=== PATIENT | female | born 1970 ===

== ENCOUNTER 2022-05-20 21:13 | Emergency (ER) | payer BC ==
[~2022-05-20] VITALS: Ht 170.2 cm; Wt 100.0 kg
--- NOTE | 2022-05-20 21:45 | NUR ---
Patient placed on 2L NC awaiting room in ER.
[2022-05-20 22:43] LABS: ALANINE AMINOTRANSFERASE 25 U/L (12-78); ALBUMIN 3.6 G/DL (3.4-5.0); ALBUMIN/GLOBULIN RATIO 0.9 (1.1-1.5); ALKALINE PHOSPHATASE 93 IU/L (46-116); ANION GAP 12 (8-16); ASPARTATE AMINO TRANSFERASE 28 U/L (10-37); BILIRUBIN,TOTAL 0.2 MG/DL (0.1-1.0); BLOOD UREA NITROGEN 13 MG/DL (7-18); BUN/CREATININE RATIO 10.2 (10.0-20.0); CALCIUM 8.7 MG/DL (8.5-10.1); CHLORIDE 103 MMOL/L (99-107); CREATININE 1.28 MG/DL (0.40-0.90); GLUCOSE 282 MG/DL (70-104); MAGNESIUM 1.9 MG/DL (1.5-2.4); POTASSIUM 3.6 MMOL/L (3.5-5.1); SODIUM 138 MMOL/L (135-145); TOTAL PROTEIN 7.5 G/DL (6.4-8.2); eGFR 44 ML/MIN
[2022-05-20 22:45] LABS: BASOPHILS # (AUTO) 0.1 X10'3 (0-0.2); BASOPHILS % (AUTO) 0.4 % (0-1); EOSINOPHILS # (AUTO) 0.1 X10'3 (0-0.9); EOSINOPHILS % (AUTO) 0.6 % (0-6); HEMOGLOBIN 16.1 g/dl (12.0-16.0); LYMPHOCYTES # (AUTO) 1.5 X10'3 (1.1-4.8); LYMPHOCYTES % (AUTO) 9.5 % (21-51); MEAN CORPUSCULAR HEMOGLOBIN 31.3 PG (27.0-31.0); MEAN CORPUSCULAR HGB CONC 33.6 g/dL (33.0-36.5); MEAN CORPUSCULAR VOLUME 92.9 FL (78-98); MEAN PLATELET VOLUME 8.5 FL (7.4-10.4); MONOCYTES # (AUTO) 0.7 X10'3 (0-0.9); MONOCYTES % (AUTO) 4.3 % (2-12); NEUTROPHILS # (AUTO) 13.1 X10'3 (1.8-7.7); NEUTROPHILS % (AUTO) 85.2 % (42-75); PLATELET COUNT 407 X10'3 (140-440); RED BLOOD COUNT 5.16 X10'6 (4.20-5.60); RED CELL DISTRIBUTION WIDTH 13.6 % (11.5-14.5); WHITE BLOOD COUNT 15.4 X10'3 (4.5-11.0)
[2022-05-20] MEDS ORDERED: diphenhydrAMINE 50 mg/ml inj IV ONE (22:50)
[2022-05-20] MEDS ORDERED: famotidine/PF 10 mg/ml inj IV ONE (22:50)
[2022-05-20] MEDS ORDERED: normal saline 1000ML IV soln IVB ONE (22:50)
[2022-05-20] MEDS ORDERED: methylPREDNISolone sod succ 125mg/2ml vial IV ONE (22:50)
--- NOTE | 2022-05-20 23:00 | NUR ---
ATTEMPT EKG, PT IN CT. WILL ATTEMPT AGAIN.
[2022-05-20] MEDS ORDERED: ondansetron/PF 4mg/2ml inj IV ONE (23:20)
[2022-05-21] MEDS ORDERED: LAMO300T2 PO (00:05)
[2022-05-21] MEDS ORDERED: epiNEPHrine 1 mg/ml inj IM STA (00:54)
[2022-05-21] MEDS ORDERED: ondansetron/PF 4mg/2ml inj IV ONE (00:55)
--- NOTE | 2022-05-21 01:13 | NUR ---
Success A new connect request was successfully created for: CORY RAMOS : 1970 ConnectID: [id number] REASON: Status Epilepticus ACUITY: Acuity Level 1 SUBMITTED:
[2022-05-21 02:12] LABS: URINE HCG NEGATIVE (NEG)
[2022-05-21 02:27] LABS: CLARITY,URINE CLEAR (Clear); COLOR,URINE YELLOW (Yellow); GLUCOSE, URINE 100 mg/dl (Neg); KETONES,URINE NEGATIVE (Neg); LEUKOCYTE ESTERASE ,URINE NEGATIVE (Neg); NITRITES, URINE NEGATIVE (Neg); OCCULT BLOOD,URINE TRACE-INTACT (Neg); PH,URINE 5.5 (4.8-8.0); PROTEIN,URINE NEGATIVE (Neg); UROBILINOGEN,URINE 0.2 E.U/dL (0.2-1.0)
[2022-05-21 02:44] LABS: UA COLLECTION TYPE CLN CATCH MIDSTREAM
[2022-05-21 02:56] LABS: BACTERIA,URINE NONE SEEN /HPF (Neg); MUCUS STRANDS FEW /LPF (Neg); RBC,URINE 0-2 /HPF (0-2); SQUAMOUS EPITHELIAL CELL,UR FEW /LPF (FEW); WBC,URINE 0-4 /HPF (0-4)
[2022-05-21 04:03] LABS: D-DIMER 11.83 MG/L FEU (0-0.50)
[2022-05-21] MEDS ORDERED: iohexol 350MG/ML 100ml bottle IV ONE (04:24)
[2022-05-21 05:15] VITALS: BP 124/77
[2022-05-21] MEDS ORDERED: PRED20TA PO (05:24)
[2022-05-21] MEDS ORDERED: EPIN0.3P3 IM (05:24)
[2022-05-21] MEDS ORDERED: KEP500T PO (05:24)
--- NOTE | 2022-05-21 07:30 | NUR ---
Patient wished to go AMA The family member at bedside seemed frustrated about not hearing about the result of the CTA chest scan result done. Patient a/o x 4. Patient decided to wait for a little more time from the doctor. Placed a re-eval status for patient. Explained to the patient the risk of going AMA.
--- NOTE | 2022-05-21 07:51 | NUR ---
Patient decided she really want to go AMA. Patient was advised to follow up with her PCP.
--- NOTE | 2022-05-21 08:17 | NUR ---
Dr. Olivier notified that patient signed an AMA. I reported to him that I spoke to patient discouraging her to leave the hospital and asked patient to wait for the doctor to speak to her. Patient had already left not too long ago. Her 2 peripheral IV catheters on the left arms were discontinued. Charge nurse Nicolette was also aware of the situation. I told Dr. Olivier that I placed a re-eval status to see if he could speak to the patient. Patient and the father at bedside were very sure they did not wanted to wait for the doctor.
== END 2022-05-21 09:40 | disposition left against medical advice (07) ==
LOC: ER 21:14
DX: T78.49XA Other allergy, initial encounter (principal); R56.9 Unspecified convulsions; Z79.899 Other long term (current) drug therapy
CPT/HCPCS: 36415; 70450; 71045; 71275; 80053; 81001; 81025; 82542; 83605; 83735; 83880; 84145; 84484; 85025; 85379; 85610; 87040; 87502; 87503; 93005; 96361; 96372; 96374; 96375; 96376; 99285; J0171; J1200; J2405; J2930; J3490; J7030; Q9967; A4615